=== PATIENT | male | born 1960 | race Caucasian/White ===

== ENCOUNTER → 2017-07-07 | Outpatient (CLI) | payer BC ==
[~2017-07-07] MED LIST: AMIT25TA9 PO; AMLO5TAB2 PO; ASPI81TA23 PO; BACT800T5 PO; CEPH500C PO; DILA4TAB10 PO; FLUT50SP EACH NARE; LEVOTAB PO; LINA145C PO; LISI-515 PO; METF1000 PO; PANT40TA3 PO; SITA1TAB2 PO; VITA1000 PO
--- NOTE | 2017-07-08 14:56 | HM ---
Date Performed: 07/07/2017 Time Performed: 09:42:00 HOOKUP DATE: 07/07/17 09:42:00 AM [facility] ANALYSIS START TIME: 07/07/2017 9:47:00 AM ANALYSIS END TIME: 07/08/2017 9:51:00 AM PATIENT AGE: 57 PATIENT HEIGHT PATIENT WEIGHT DRUG LIST PATIENT DIAGNOSIS: chronic tachycardia TEST NARRATIVE: The patient's average heart rate was 101 BPM. Heart rates greater than 120 BPM were noted 3% of the time. No episodes of bradycardia were noted. No pauses exceeding 2.0 se conds were noted. No ventricular ectopics were noted. No supraventricular ectopics were noted . No episodes of ST depression (defined as -1.0 mm or more) were noted in channel 1. No episodes of ST depression (defined as -1.0 mm or more) were noted in channel 2. No episodes of ST depression (defined as -1.0 mm or more) were noted in channel 3. NO DIARY RETURNED, NO SYMPTOMS PER PATIENT TEST INTERPRETATION: Patient was monitored for 24 hours and 4 minutes. Minimum heart rate as 78 bpm. Maximum heart rate was 129 bpm. Average heart rate was 101 bpm. There were no PACs or PVCs seen. Holter monitor notable for high average heart rate with periods of sinus tachycardia, but no atrial fibrillation or other arrhytmia noted. Signed by : Jhony Briggs
== END ==
LOC: HCAV 09:09
PROVIDERS: ATTEND Family Medicine
DX: R00.0 Tachycardia, unspecified (principal)
CPT/HCPCS: 93225; 93226

== ENCOUNTER → 2017-08-10 | Outpatient (CLI) | payer OTHER ==
[~2017-08-10] MED LIST changes: -BACT800T5 PO; -CEPH500C PO; +METO1TAB42 PO; -VITA1000 PO; +VITA500012 PO
--- NOTE | 2017-08-10 08:44 | RADRPT ---
EXAM DATE/TIME: 08/10/2017 00:00 [facility] COMPARISON: No previous studies available for comparison. INDICATIONS : PAD, Diabetic TECHNIQUE: Five-station segmental examination of the lower extremities was performed. Pulsed-cuff waveform tracings and pressures were recorded. Ankle-brachial indices and toe-brachial indices were calculated. PRESSURES (mmHg): Brachial (arm): Right 134 Left 132 Lower Thigh: Right 145 Left 157 Calf: Right 141 Left 136 Ankle: Right 146 Left 134 Toe: Right 90 Left 91 CHRISTAL: Right 1.09 Left 1.00 TBI: Right 0.67 Left 0.68 PULSED CUFF WAVEFORMS: Demonstrate normal amplitude bilaterally. CONCLUSION: Unremarkable segmental evaluation of the lower extremities. Channing Parisi MD on August 10, 2017 at 8:40 Board Certified Radiologist. This report was verified electronically.
--- NOTE | 2017-08-10 10:36 | RADRPT ---
EXAM DATE/TIME: 08/10/2017 08:57 [facility] COMPARISON: No previous studies available for comparison. INDICATIONS : Right upper quadrant pain, elevated liver function. MEDICAL HISTORY : Hypertension. Diabetic. PAD. SURGICAL HISTORY : Cervical fusion. ENCOUNTER: Initial ACUITY: 1 day PAIN SCORE: 1/10 LOCATION: Bilateral upper quadrant MEASUREMENTS: LIVER: 17.3 cm length COMMON DUCT: 4 mm RIGHT KIDNEY: 11.9 x 5.9 x 6.1 cm LEFT KIDNEY: 13.6 x 5.2 x 5.4 cm SPLEEN: 13.3 cm length AORTA: 1.7cm maximal FINDINGS: LIVER: Diffuse echogenic without focal lesion or ductal dilatation. Hepatopedal flow. COMMON DUCT: No intraluminal mass or stone visualized. GALLBLADDER: there is layering debris in the gallbladder lumen without wall thickening or perich olecystic fluid. PANCREAS: The visualized portions are within normal limits. RIGHT KIDNEY: No hydronephrosis, stone or mass. LEFT KIDNEY: No hydronephrosis, stone or mass. SPLEEN: No focal lesion. AORTA: Non aneurysmal. IVC: Within normal limits. CONCLUSION: 1. Layering debris within the gallbladder lumen likely sludge although some small stones cannot be ex cluded. 2. Echogenic liver which can be seen with moderate hepatic steatosis/hepatocellular dysfunction. 3. Spleen mildly enlarged. Michael Ivan MD on August 10, 2017 at 10:32 Board Certified Radiologist. This report was verified electronically.
== END ==
LOC: HCAV 07:55
PROVIDERS: ATTEND Family Medicine
DX: I73.9 Peripheral vascular disease, unspecified (principal); I10 Essential (primary) hypertension; R10.11 Right upper quadrant pain; R74.0 Nonspecific elevation of levels of transaminase and lactic acid dehydrogenase [LDH]; K59.09 Other constipation; R07.9 Chest pain, unspecified; E11.9 Type 2 diabetes mellitus without complications; F17.210 Nicotine dependence, cigarettes, uncomplicated
CPT/HCPCS: 76700; 93923